=== PATIENT | female | born 1965 | race Caucasian/White ===

== ENCOUNTER → 2016-08-08 | Outpatient (CLI) | payer BC ==
[~2016-08-08] VITALS: Ht 152.4 cm; Wt 89.8 kg
[2016-08-08 08:57] VITALS: BP 136/79
--- NOTE | 2016-08-08 09:56 | RAD ---
Indication left thyroid nodule. Patient's outside thyroid examination from 07/27/2016 was reviewed. Preliminary ultrasound images were obtained and the known nodule in the left lobe of the thyroid was reproduced. Acting Teacher images were saved. Image guided biopsy was discussed with the patient. The risks of infection and bleeding were outlined. The possibility of a nondiagnostic study was also outlined. The patient understood the risks and limitations associated with the procedure and wished to proceed. The skin was prepped and draped in the routine fashion. Local anesthesia was obtained with 1% lidocaine. A medial to lateral approach was utilized. Under ultrasound guidance 4 FNA samples with 25-gauge needles were obtained. Subsequently a Rotex sample was obtained. Pathology was present during the biopsy procedure and all retrieved tissue was given to pathology. Patient tolerated the procedure well. Following the procedure the patient was watched in the department for 15 minutes and then discharged with appropriate instructions. IMPRESSION: Successful sampling 1 cm nodule in the left lobe of thyroid under ultrasound guidance
== END | disposition home or self-care (01) ==
LOC: US 07:46
PROVIDERS: ATTEND Family Medicine
DX: E04.1 Nontoxic single thyroid nodule (principal)
CPT/HCPCS: 60300; 76942

== ENCOUNTER → 2019-01-06 | Outpatient (CLI) | payer BC ==
[2016-08-08 08:57] VITALS: BP 136/79
[2019-01-06 16:13] LABS: BASO # 0.1 x10^3/uL (0.0-0.2); BASO % 1 % (0-3); EOS # 0.4 x10^3/uL (0.0-0.7); EOS % 4 % (0-3); HEMATOCRIT 43.1 % (36.0-47.0); HEMOGLOBIN 14.7 g/dL (12.0-15.5); LYMPH # 2.1 x10^3/uL (1.0-4.8); LYMPH % 25 % (24-48); MEAN CORPUSCULAR HEMOGLOBIN 29 pg (25-35); MEAN CORPUSCULAR HGB CONC 34 g/dL (31-37); MEAN CORPUSCULAR VOLUME 85 fL (79-100); MONO # 0.5 x10^3/uL (0.0-1.1); MONO % 6 % (0-9); NEUT # 5.5 x10^3/uL (1.8-7.7); NEUT % 64 % (31-73); PLATELET COUNT 251 x10^3/uL (140-400); RED BLOOD COUNT 5.06 x10^6/uL (3.50-5.40); WHITE BLOOD COUNT 8.6 x10^3/uL (4.0-11.0)
[2019-01-06 16:26] LABS: PROTHROMBIN TIME PATIENT 12.7 SEC (11.7-14.0)
[2019-01-06 16:40] LABS: ALBUMIN 3.8 g/dL (3.4-5.0); ALBUMIN/GLOBULIN RATIO 1.1 (1.0-1.7); CREATININE 0.9 mg/dL (0.6-1.0); POTASSIUM 3.5 mmol/L (3.5-5.1); TOTAL BILIRUBIN 0.3 mg/dL (0.2-1.0); TOTAL PROTEIN 7.4 g/dL (6.4-8.2)
== END | disposition home or self-care (01) ==
LOC: LAB 15:51
PROVIDERS: ATTEND Podiatrist
DX: M20.12 Hallux valgus (acquired), left foot (principal)
CPT/HCPCS: 36415; 80053; 85025; 85610; 85730

== ENCOUNTER → 2019-01-07 | Outpatient (CLI) | payer BC ==
[2016-08-08 08:57] VITALS: BP 136/79
[2019-01-08 00:07] LABS: HEMOGLOBIN A1C 5.3 % (4.8-5.6)
== END | disposition home or self-care (01) ==
LOC: LAB 16:00
PROVIDERS: ATTEND Podiatrist
DX: E11.9 Type 2 diabetes mellitus without complications (principal)
CPT/HCPCS: 36415; 83036

== ENCOUNTER 2019-01-16 10:01 | Day surgery (SDC) | payer BC ==
[~2019-01-16] VITALS: Ht 170.2 cm; Wt 88.0 kg
[~2019-01-16 10:01] MED LIST: CLINDAMYCIN 900MG PREMIX 50 ML IV PRN; DEXAMETHASONE SOD PHOS 4 MG/ML VIAL ONE; IV RINGERS,LACTATED 1000ML 1,000 ML IV SCH; LIDOCAINE 2% PF 5 ML VIAL. ONE; ONDANSETRON PF 4 MG/2 ML VIAL. IV PRN; ONDANSETRON PF 4 MG/2 ML VIAL. ONE; PROCHLORPERAZINE 10 MG/2 ML VIAL. IV PRN; PROPOFOL 20 ML IV ONE; fentaNYL PF VIAL 100 MCG/2 ML VIAL IV PRN
[2019-01-16] MEDS ORDERED: LEVO88TA4 PO (10:39)
[2019-01-16] MEDS ORDERED: LORA10TA68 PO (10:40)
--- NOTE | 2019-01-16 10:46 | HP ---
ADMIT DATE: 01/16/2019 CHIEF COMPLAINT: Left great toe bunion. HISTORY OF PRESENT ILLNESS: The patient is a pleasant middle-aged white female who works as a special medical claims specialist. She has a master's degree. Basically, she has chronic bunions. Slitter And Cutter Operator has decided to take her to surgery. There are going to do the left bunion today and then the right bunion in a month. We have been requested for preop medical clearance. PAST MEDICAL HISTORY: Basically benign, other than she has multiple allergies, please see the allergies list. ALLERGIES: Multiple, please see the allergy list, but she is basically allergic to all antibiotics, CODEINE AND TALWIN. FAMILY HISTORY: Noncontributory. SOCIAL HISTORY: She does not drink, smoke or take drugs. She works as a teacher, special ed, has a master's degree. MEDICATIONS: Reviewed, please refer to the MRAD. REVIEW OF SYSTEMS: GENERAL: No history of weight change, weakness or fevers. SKIN: No bruising, hair changes or rashes. EYES: No blurred, double or loss of vision. NOSE AND THROAT: No history of nosebleeds, hoarseness or sore throat. HEART: No history of palpitations, chest pain or shortness of breath on exertion. LUNGS: Denies cough, hemoptysis, wheezing or shortness of breath. GASTROINTESTINAL: Denies changes in appetite, nausea, vomiting, diarrhea or constipation. GENITOURINARY: No history of frequency, urgency, hesitancy or nocturia. NEUROLOGIC: Denies history of numbness, tingling, tremor or weakness. PSYCHIATRIC: No history of panic, anxiety or depression. ENDOCRINE: No history of heat or cold intolerance, polyuria or polydipsia. EXTREMITIES: She complains of left toe pain. PHYSICAL EXAMINATION: GENERAL: No history of weight change, weakness or fevers. SKIN: No bruising, hair changes or rashes. EYES: No blurred, double or loss of vision. NOSE AND THROAT: No history of nosebleeds, hoarseness or sore throat. HEART: No history of palpitations, chest pain or shortness of breath on exertion. LUNGS: Denies cough, hemoptysis, wheezing or shortness of breath. GASTROINTESTINAL: Denies changes in appetite, nausea, vomiting, diarrhea or constipation. GENITOURINARY: No history of frequency, urgency, hesitancy or nocturia. NEUROLOGIC: Denies history of numbness, tingling, tremor or weakness. PSYCHIATRIC: No history of panic, anxiety or depression. ENDOCRINE: No history of heat or cold intolerance, polyuria or polydipsia. EXTREMITIES: Both feet have a moderate sized bunion on the greater toe. LABORATORY: Preop lab is available at this time. ASSESSMENT AND PLAN: Bilateral bunions. She is cleared for surgery from my standpoint. I suspect she is at minimal risk for intraoperative complications. She is basically a healthy lady. Thank you very much for allowing us to participate in the care of this nice lady. If you have any questions, please call. ANGELA KELLER DO DR: TAYLA/estee JOB#: [id number] / [id number]
[2019-01-16] MEDS ORDERED: DEXAMETHASONE SOD PHOS 4 MG/ML VIAL ONE (10:56)
[2019-01-16] MEDS ORDERED: LIDOCAINE 1% 20 ML VIAL. ONE (10:56)
[2019-01-16] MEDS ORDERED: POVIDONE-IODINE 10% TOPICAL OINTMENT 28GM TUBE. TP ONE (10:56)
[2019-01-16] MEDS ORDERED: methylPREDNISolone ACETATE 40 MG/ML VIAL. ONE (10:56)
[2019-01-16] MEDS ORDERED: BUPIVACAINE MPF 0.5% 30 ML VIAL. ONE (10:57)
[2019-01-16] MEDS ORDERED: fentaNYL PF VIAL 100 MCG/2 ML VIAL ONE ×2 (12:31→13:02)
[2019-01-16] MEDS ORDERED: MIDAZOLAM HCL/PF 2 MG/2 ML VIAL. ONE (12:31)
[2019-01-16] MEDS ORDERED: IBUP-1060 PO (14:21)
[2019-01-16] MEDS ORDERED: ACET-704 PO (14:21)
--- NOTE | 2019-01-16 14:26 | DISCH ---
DISCHARGE INSTRUCTIONS Condition on Discharge Condition on Discharge: Stable Activity After Discharge Activity Instructions for Disc: Other, see below (Minimal heel weight bearing in CAM Walker with crutches or knee walker) Bathing Instructions: Shower-keep dressing dry Lifting Instructions after Dis: No heavy lifting, No pulling or pushing Driving Instructions after Dis: Do not drive Weight Bearing Status after Di: Other, see below (Minimal Heel weight bearing in CAM Walker with crutches or knee walker) Diet after Discharge Diet after Discharge: Regular Wound Incision Care Wound/Incision Care: Ice to area for comfort, Keep wound/cast CDI, Keep wound elevated, Do not change dressing Contacting the after DC Call your doctor for: Concerns you may have ([phone]) Follow-Up Follow up with: Dr. Short at the Clinic on Sunday01/21/19 at 3pm (please call if any issue) KELBY SHORT DPM Jan 16, 2019 14:26
[2019-01-16 14:40] VITALS: BP 154/85
--- NOTE | 2019-01-16 14:40 | PDOC4 ---
OPERATIVE NOTE: Post-op Note Date of Surgery: 01/16/19 Surgeon: Kelby Rutledge Hand Cigar Making Supervisor: Dr. Maier Pre-op Diagnosis: Hallux valgus, left foot Post-op Diagnosis: Same as above Procedure: Scarf Bunionectomy, left foot Materials used: In 2Bones 2.7 cortical screws 16mm x 2 Hemostasis: Left ankle torniquet set at 250 mmHg EBL: Minimal (5ml) Patient tolerated the procedure and anesthesia well and was transported back to PACU with vitals signs stable and good CFT to the digits. Patient to be minimal heel weight bearing with a CAM Walker left lower extremity with aide of crutches or knee walker. Discussed with patient pre-op about post op pain medication and it was found that she does not have a true allergy to Codeine (upset stomach). Prescribed tylenol #3 and ibuprofen 800mg. If the patient has any issues or reactions she should call the clinic or go to urgent care / ER. Patient to followup in clinic on Sunday01/21/19 at 3pm. KELBY SHORT DPM Jan 16, 2019 14:40
[2019-01-16] MEDS ORDERED: IBUPROFEN 200 MG TABLET. PO ONE ×2 (15:00→15:13)
[2019-01-16] MEDS ORDERED: IBUPROFEN 400 MG TABLET. PO ONE (15:00)
--- NOTE | 2019-01-16 15:04 | RAD ---
Portable three-view study left foot Clinical indications: Postoperative exam. FINDINGS: Distal osteotomy and screw fixation of the first metatarsal bone is evident. See operative report for full details. Soft tissue air is seen as a result of the surgery. No fracture is evident. No dislocation is seen. No lytic process is evident. Small plantar spur of the calcaneus is seen. IMPRESSION: Postoperative changes of the first metatarsal bone. Electronically signed by: Dwight Kim MD (01/16/2019 3:01 PM) [id number]
--- NOTE | 2019-01-21 20:37 | OP ---
DATE OF SURGERY: 01/16/2019 PREOPERATIVE DIAGNOSIS: Hallux valgus, left foot. POSTOPERATIVE DIAGNOSIS: Hallux valgus, left foot. PROCEDURE PERFORMED: Scarf bunionectomy, left foot. SURGEON: Dr. Short. DIALYSIS REGISTERED NURSE: Dr. العراقي. HEMOSTASIS: Left ankle tourniquet at 250 mmHg. ANESTHESIA: IV MAC sedation with local anesthetic in the Cormier fashion. INDICATIONS: The patient is a 53-year-old female with a chronically painful left bunion. She tried conservative treatment with insoles, wider shoes, accommodative padding without any improvement. Radiographs showed increased first metatarsal angle and deviated sesamoids and on clinical exam, the patient had positive pain on palpation to the medial and dorsal aspect of the first metatarsal head. We discussed with the patient the risks, benefits, and complications of the surgery including delayed healing, nonhealing, need for further surgery, infection, chronic regional pain syndrome, recurrence, numbness, tingling, burning, loss of sensation to the toe, blood clots to the leg, blood clots to the lung, overcorrection, under correction, stiff toe, floppy toe, flail toe, lack of toe purchase. All questions were answered. No guarantees were made. The patient signed the consent freely and it was placed in the chart. DESCRIPTION OF PROCEDURE: The patient was transferred to the operating room via cart and placed on operating room table in a supine position. After verification of the surgery, patient, a well-padded ankle tourniquet was placed over the left ankle. IV sedation was administered by Anesthesia and a Cormier block was administered to the left foot consisting of 1:1 mixture of 1% lidocaine plain and 0.5% Marcaine plain, 24 mL total. The left foot was then prepped and draped in the usual aseptic manner. Esmarch bandage was used to exsanguinate the left foot. The left ankle tourniquet was inflated to 250 mmHg. Attention was then directed to the left first ray where a 5 cm incision was made just medial to the extensor hallucis longus tendon. This was deepened down to the level of the joint capsule. Small vessels were cauterized and neurovascular bundle was reflected from the surgical site. Next, a linear incision was made to the first metatarsal and the base of the proximal phalanx and the joint capsule was reflected from the distal two-thirds of the first metatarsal and the base of the proximal phalanx. No significant osteochondral defects were noted to the first metatarsophalangeal joint. There was a large bony prominence to the medial eminence of the first metatarsal, which was resected with a sagittal saw. Next, a lateral release was performed and the sesamoids were put back underneath the first metatarsal head. Next, attention was redirected to the first metatarsal and the osteotomy was performed through the first metatarsal and the capital fragment was shifted laterally by about 3 mm. Temporary fixation was achieved with a bone clamp and two, 2.7 fully threaded cortical screws measuring 16 mm were used to fixate the osteotomy site satisfactorily. Improvement in the bunion deformity was noted. The surgical site was copiously irrigated with sterile saline solution and the capsule was then reapproximated with 3-0 Vicryl and the tendon was reapproximated using 3-0 Vicryl. The skin was then sutured together in a horizontal mattress fashion using 4-0 nylon. A postop injection was given using 6 mL of 0.5% Marcaine plain in a Cormier block fashion. Please note that prior to closure, the dorsal eminence of the first metatarsal was resected with a sagittal saw. The bandage was then placed with Betadine ointment, Adaptic gauze, 4 x 4 gauze, Conform bandage and an Sacha bandage. The tourniquet was deflated with good perfusion noted to all the digits of the left foot. The patient tolerated the anesthesia and the procedure well and was transported to the PACU in a stable condition with vascular status intact to the left foot. The patient's postop instructions were placed in the chart. The patient to be minimal weightbearing as tolerated in Cam walker boot and the patient is to follow up in clinic in 5 days or sooner if any issues. The patient given postop medication. KELBY SHORT DPM DR: MIKAEL/estee JOB#: [id number] / [id number]
== END 2019-01-16 15:15 | disposition home or self-care (01) ==
LOC: SURG 10:01
PROVIDERS: ATTEND Podiatrist
DX: M20.12 Hallux valgus (acquired), left foot (principal); E89.0 Postprocedural hypothyroidism; Z79.899 Other long term (current) drug therapy; Z90.710 Acquired absence of both cervix and uterus; Z90.49 Acquired absence of other specified parts of digestive tract; Z98.890 Other specified postprocedural states
CPT/HCPCS: 28296; 73630; 82962; C1713; J1100; J2001; J2250; J2405; J2704; J3010; J3490; J1030

== ENCOUNTER → 2019-03-10 | Outpatient (CLI) | payer BC ==
[~2019-03-10] MED LIST changes: +ACET-704 PO; +ASPI-171 PO; -CLINDAMYCIN 900MG PREMIX 50 ML IV PRN; -DEXAMETHASONE SOD PHOS 4 MG/ML VIAL ONE; +HYDR12.58 PO; +IBUP-1060 PO; +IBUP800T19 PO; -IV RINGERS,LACTATED 1000ML 1,000 ML IV SCH; +LEVO88TA4 PO; -LIDOCAINE 2% PF 5 ML VIAL. ONE; +LORA10TA68 PO; -ONDANSETRON PF 4 MG/2 ML VIAL. IV PRN; -ONDANSETRON PF 4 MG/2 ML VIAL. ONE; -PROCHLORPERAZINE 10 MG/2 ML VIAL. IV PRN; -PROPOFOL 20 ML IV ONE; +TRAM50TA PO; -fentaNYL PF VIAL 100 MCG/2 ML VIAL IV PRN
[2019-03-10 09:38] LABS: BASO # 0.1 x10^3/uL (0.0-0.2); BASO % 1 % (0-3); EOS # 0.2 x10^3/uL (0.0-0.7); EOS % 4 % (0-3); HEMATOCRIT 45.4 % (36.0-47.0); HEMOGLOBIN 15.6 g/dL (12.0-15.5); LYMPH # 1.5 x10^3/uL (1.0-4.8); LYMPH % 26 % (24-48); MEAN CORPUSCULAR HEMOGLOBIN 30 pg (25-35); MEAN CORPUSCULAR HGB CONC 34 g/dL (31-37); MEAN CORPUSCULAR VOLUME 86 fL (79-100); MONO # 0.4 x10^3/uL (0.0-1.1); MONO % 7 % (0-9); NEUT # 3.8 x10^3/uL (1.8-7.7); NEUT % 63 % (31-73); PLATELET COUNT 276 x10^3/uL (140-400); RED BLOOD COUNT 5.28 x10^6/uL (3.50-5.40); RED CELL DISTRIBUTION WIDTH 14.2 % (11.5-14.5); WHITE BLOOD COUNT 6.1 x10^3/uL (4.0-11.0)
[2019-03-10 09:47] LABS: PROTHROMBIN TIME PATIENT 13.4 SEC (11.7-14.0)
[2019-03-10 09:59] LABS: ALBUMIN 3.7 g/dL (3.4-5.0); ALBUMIN/GLOBULIN RATIO 0.9 (1.0-1.7); CALCIUM 8.7 mg/dL (8.5-10.1); GFR 58.2; POTASSIUM 3.7 mmol/L (3.5-5.1); TOTAL BILIRUBIN 0.6 mg/dL (0.2-1.0); TOTAL PROTEIN 7.7 g/dL (6.4-8.2)
== END | disposition home or self-care (01) ==
LOC: LAB 09:13
PROVIDERS: ATTEND Podiatrist
DX: Z01.818 Encounter for other preprocedural examination (principal); M21.612 Bunion of left foot; Z79.899 Other long term (current) drug therapy
CPT/HCPCS: 36415; 80053; 85025; 85610; 85730

== ENCOUNTER 2019-03-13 10:15 | Day surgery (SDC) | payer BC ==
[~2019-03-13] VITALS: Ht 170.2 cm; Wt 90.0 kg
[~2019-03-13 10:15] MED LIST changes: -ASPI-171 PO; +CLINDAMYCIN 900MG PREMIX 50 ML IV ONE; +HYDROmorphone 2 MG/ML VIAL IV PRN; -IBUP800T19 PO; +IV RINGERS,LACTATED 1000ML 1,000 ML IV SCH; +LIDOCAINE 1% PF 2 ML VIAL. ID PRN; +MORPHINE SULFATE 2 MG/ML VIAL. IV PRN; +ONDANSETRON PF 4 MG/2 ML VIAL. IV PRN; +PROCHLORPERAZINE 10 MG/2 ML VIAL. IV PRN; -TRAM50TA PO; +fentaNYL PF VIAL 100 MCG/2 ML VIAL IV PRN
[2019-03-13] MEDS ORDERED: BUPIVACAINE MPF 0.5% 30 ML VIAL. ONE (10:38)
[2019-03-13] MEDS ORDERED: POVIDONE-IODINE 10% TOPICAL OINTMENT 28GM TUBE. TP ONE ×2 (10:38→13:28)
[2019-03-13] MEDS ORDERED: DEXAMETHASONE SOD PHOS 4 MG/ML VIAL ONE (10:38)
[2019-03-13] MEDS ORDERED: LIDOCAINE 1% 20 ML VIAL. ONE (10:38)
[2019-03-13] MEDS ORDERED: MIDAZOLAM HCL/PF 2 MG/2 ML VIAL. ONE (11:46)
[2019-03-13] MEDS ORDERED: fentaNYL PF VIAL 100 MCG/2 ML VIAL ONE (11:47)
[2019-03-13] MEDS ORDERED: PROPOFOL 20 ML IV ONE (11:47)
[2019-03-13] MEDS ORDERED: LIDOCAINE 2% PF 5 ML VIAL. ONE (11:47)
[2019-03-13] MEDS ORDERED: PROPOFOL 50 ML IV ONE (12:13)
[2019-03-13] MEDS ORDERED: BACITRACIN TOPICAL OINT PACKET. TP ONE (12:57)
--- NOTE | 2019-03-13 13:26 | SSS ---
ADMIT DATE: 03/13/2019 CHIEF COMPLAINT: First toe bunion. HISTORY OF PRESENT ILLNESS: The patient is a pleasant, relatively healthy 54-year-old female, who had one bunion removed last month. Now, she is back to have the other one off. We have been requested for postop medical evaluation and treatment and clearance for surgery. PAST MEDICAL HISTORY: Previous bunion surgery, hypothyroidism, and hypertension. ALLERGIES: Multiple including MANY ANTIBIOTICS and LORTAB. Please see the chart. FAMILY HISTORY: Bunions. SOCIAL HISTORY: She is . 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 She does not drink, smoke or take drugs. MEDICATIONS: Reviewed. She is on Synthroid and hydrochlorothiazide. REVIEW OF SYSTEMS: GENERAL: No history of weight change, weakness or fevers. SKIN: No bruising, hair changes or rashes. EYES: No blurred, double or loss of vision. NOSE AND THROAT: No history of nosebleeds, hoarseness or sore throat. HEART: No history of palpitations, chest pain or shortness of breath on exertion. LUNGS: Denies cough, hemoptysis, wheezing or shortness of breath. GASTROINTESTINAL: Denies changes in appetite, nausea, vomiting, diarrhea or constipation. GENITOURINARY: No history of frequency, urgency, hesitancy or nocturia. NEUROLOGIC: Denies history of numbness, tingling, tremor or weakness. PSYCHIATRIC: No history of panic, anxiety or depression. ENDOCRINE: No history of heat or cold intolerance, polyuria or polydipsia. EXTREMITIES: She complains of bunion pain on the left first toe. PHYSICAL EXAMINATION: VITALS: Within normal limits and are stable. GENERAL: No apparent distress. Alert and oriented. HEENT: Normal cephalic atraumatic, external auditory canals are patent. EYES: Extraocular muscles are intact, pupils are equally round and reactive to light and accommodation. MUSKULOSKELETAL: Well developed, well nourished, good range of motion. ENDOCRINE: No thyromegaly was palpated. LYMPHATICS: No cervical chain or axillary nodes were noted. HEMATOPOIETIC: No bruising. NECK: Supple, no JVD, no thyromegaly was noted. LUNGS: Clear to auscultation in all lung price without rhonchi or wheezing. HEART: RRR, S1, S2 present. Peripheral pulses intact, no obvious murmurs were noted. ABDOMEN: Soft, nontender. Positive bowel sounds no organomegaly, normal bowel sounds. EXTREMITIES: She has a bunion on the left first toe. NEUROLOGIC: Normal speech, normal tone. A & O x3, moves all extremities, no obvious focal deficits. PSYCHIATRIC: Normal affect, normal mood. Stable. SKIN: No ulcerations or rashes, good skin turgor, no jaundice. VASCULAR: Good capillary refill, neurovascular bundle appears to be intact. ASSESSMENT AND PLAN: Bunion with intractable pain in a middle-aged female with above noted comorbidities. PLAN: The patient is clinically stable to go to surgery. Postoperatively, she will need wound care. Continue her home meds and have her see her doctor in a week. DISPOSITION: Home. ACTIVITY: As tolerated. DIET: Low sodium. DISCHARGE MEDICATIONS: Please see MRAD. TOTAL TIME: 32 minutes. JUNIORL Laura KELLER DO DR: TAYLA/estee JOB#: [id number] / [id number]
--- NOTE | 2019-03-13 13:36 | DISCH ---
DISCHARGE INSTRUCTIONS Condition on Discharge Condition on Discharge: Stable Activity After Discharge Activity Instructions for Disc: Other, see below Bathing Instructions: Shower-keep dressing dry Lifting Instructions after Dis: No heavy lifting, No pulling or pushing Driving Instructions after Dis: Do not drive Weight Bearing Status after Di: Other, see below (Minimal weightbearing, bilateral feet in CAM Walker booots.) Diet after Discharge Diet after Discharge: Regular Wound Incision Care Wound/Incision Care: Keep wound/cast CDI, Keep wound elevated, Do not change dressing Contacting the after DC Call your doctor for: Concerns you may have Follow-Up Follow up with: Dr. Short on 03/18/19 at 3:30pm KELBY SHORT DPM Mar 13, 2019 13:36
[2019-03-13] MEDS ORDERED: traMADol 50 MG TABLET PO ONE (13:45)
--- NOTE | 2019-03-13 13:53 | RAD ---
Three-view right foot study Clinical indications: Postoperative study FINDINGS: Distal first metatarsal osteotomy and screw fixation is seen. No acute fracture is seen elsewhere. No lytic process evident. No dislocation is seen. IMPRESSION: Bunionectomy.. Electronically signed by: Dwight Kim MD (03/13/2019 1:50 PM) [facility]
--- NOTE | 2019-03-13 13:56 | PDOC4 ---
OPERATIVE NOTE: Post operative Note: Date of Surgery: 03/13/19 Surgeon: Kelby Rutledge Pre-op Diagnosis: Hallux valgus, right foot Post-op Diagnosis: Same as above Procedure: Patel Bunionectomy, right foot Materials used: In 2Bones 3.0 cortical screws 24mm x 1 Hemostasis: Right ankle torniquet set at 250 mmHg for 52 minutes. EBL: Minimal (5ml) Patient tolerated the procedure and anesthesia well and was transported back to PACU with vitals signs stable and good CFT to the digits. Patient to be minimal heel weight bearing with a CAM Walker right lower extremity with aide of crutches or knee walker. Patient to followup in clinic on Sunday03/18/19 at 3:30pm. KELBY SHORT DPM Mar 13, 2019 13:56
[2019-03-13] MEDS ORDERED: TRAM50TA PO (14:11)
[2019-03-13] MEDS ORDERED: IBUP800T19 PO (14:12)
[2019-03-13] MEDS ORDERED: ASPI-171 PO (14:13)
[2019-03-13 14:30] VITALS: BP 127/76
--- NOTE | 2019-03-13 16:41 | OP ---
DATE OF SURGERY: 03/13/2019 PREOPERATIVE DIAGNOSIS: Hallux valgus, right foot. POSTOPERATIVE DIAGNOSIS: Hallux valgus, right foot. PROCEDURE PERFORMED: Patel bunionectomy, right foot. SURGEON: Kelby Short DPM. HEMOSTASIS: Right ankle tourniquet at 250 mmHg for 52 minutes. ANESTHESIA: IV MAC sedation with local anesthetic in Cormier fashion. INDICATIONS: The patient is a 54-year-old female with chronically painful right bunion. The patient recently had a left bunionectomy surgery done. The patient would like to go ahead and have the right foot bunionectomy. The patient has tried conservative treatment with insoles, wider shoes, and accommodative padding without any improvement. Radiograph showed increased first metatarsal angle and deviated sesamoids and on clinical exam, the patient had positive pain on palpation to the medial and dorsal aspect of the first metatarsal head. We discussed the patient's risks, benefits, and complications of the surgery including delayed healing, nonhealing, need for further surgery, infection, chronic regional pain syndrome, recurrence, numbness, tingling, burning, loss of sensation to the toe, blood clots to the leg, blood clots to the lungs, overcorrection, under correction, stiff toe, floppy toe, flail toe, lack of toe purchase. All questions were answered. No guarantees were made. The patient signed the consent freely and it was placed in the chart. DESCRIPTION OF PROCEDURE: The patient was transported to the operating room via cart and placed on the operating room table in a supine position. After verification of surgery, the patient, and the procedure, a well-padded ankle tourniquet was placed over the right ankle. IV sedation was administered by Anesthesia and a Cormier block was administered to the right foot consisting of 1:1 mixture of 1% lidocaine plain and 0.5% Marcaine plain, 20 mL total. The right foot was then prepped and draped in the usual aseptic manner. Esmarch bandage was used to exsanguinate the right foot. The right ankle tourniquet was inflated to 250 mmHg. Attention was then directed to the right first ray where a 4 cm incision was made just medial to the extensor hallucis longus tendon. This was deepened down to the level of the joint capsule. Small vessels were cauterized and neurovascular bundle was reflected from the surgical site. Next, a linear incision was made to the first metatarsal and the base of the proximal phalanx and the joint capsule was reflected from the distal one-third of the first metatarsal and the base of the proximal phalanx. No significant osteochondral defects were noted to the first metatarsophalangeal joint. There was a large bony prominence to the medial eminence of the first metatarsal, which was resected with a sagittal saw. Next, a lateral release was performed and the sesamoids were put back underneath the first metatarsal head. Next, attention was redirected to the first metatarsal and the osteotomy was performed through the first metatarsal head and an Patel osteotomy, the capital fragment was then shifted laterally by about 3 mm. Temporary fixation was achieved using a 0.045 K-wire and permanent fixation was achieved using 130 fully threaded cortical screw measuring 24 mm, the osteotomy site was fixated satisfactorily. The temporary fixation was removed. Improvement in the bunion deformity was noted. The surgical site was copiously irrigated with sterile saline solution and the capsule was reapproximated. Next, using the sagittal saw, the dorsal eminence of the first metatarsal as well as lateral eminence was resected, flushed with the osteotomy site. Next, the surgical site was irrigated with sterile saline solution and the capsule was reapproximated using 3-0 Vicryl and the tendon was reapproximated using 3-0 Vicryl. The skin was then sutured together in a horizontal mattress fashion using 4-0 nylon. The bandage was then placed with bacitracin ointment, Adaptic gauze, 4 x 4 gauze, Conform bandage and Sacha wrap. The tourniquet was deflated with good perfusion noted to the digits of the right foot. The patient tolerated the anesthesia and the procedure well and was transferred to the PACU in stable condition and vascular status intact to the right foot. The patient's postop instructions were placed in the chart. The patient to be minimal weightbearing as tolerated in a Cam walker boot and is to follow up in clinic in 5 days or sooner if any issues. The patient was given postoperative pain medication prescriptions. KELBY SHORT DPM DR: MIKAEL/estee JOB#: [id number] / [id number]
== END 2019-03-13 14:40 | disposition home or self-care (01) ==
LOC: SURG 10:15
PROVIDERS: ATTEND Podiatrist
DX: M20.11 Hallux valgus (acquired), right foot (principal); E03.9 Hypothyroidism, unspecified; I10 Essential (primary) hypertension; E66.9 Obesity, unspecified; Z68.31 Body mass index [BMI] 31.0-31.9, adult; Z90.710 Acquired absence of both cervix and uterus; Z98.890 Other specified postprocedural states; Z90.49 Acquired absence of other specified parts of digestive tract; Z85.850 Personal history of malignant neoplasm of thyroid; Z88.1 Allergy status to other antibiotic agents; Z88.8 Allergy status to other drugs, medicaments and biological substances
CPT/HCPCS: 28296; 73630; C1713; J2001; J2250; J2704; J3010; J3490; J1100

== ENCOUNTER → 2019-04-28 | Outpatient (CLI) | payer BC ==
[~2019-04-28] MED LIST changes: +ASPI-171 PO; +CALC600T4 PO; -CLINDAMYCIN 900MG PREMIX 50 ML IV ONE; +HYDR25TA10 PO; -HYDROmorphone 2 MG/ML VIAL IV PRN; +IBUP800T19 PO; -IV RINGERS,LACTATED 1000ML 1,000 ML IV SCH; -LIDOCAINE 1% PF 2 ML VIAL. ID PRN; -MORPHINE SULFATE 2 MG/ML VIAL. IV PRN; -ONDANSETRON PF 4 MG/2 ML VIAL. IV PRN; -PROCHLORPERAZINE 10 MG/2 ML VIAL. IV PRN; +TRAM50TA PO; -fentaNYL PF VIAL 100 MCG/2 ML VIAL IV PRN
[2019-04-28 12:13] LABS: BASO # 0.1 x10^3/uL (0.0-0.2); BASO % 1 % (0-3); EOS # 0.2 x10^3/uL (0.0-0.7); EOS % 3 % (0-3); HEMATOCRIT 45.2 % (36.0-47.0); HEMOGLOBIN 15.6 g/dL (12.0-15.5); LYMPH # 1.5 x10^3/uL (1.0-4.8); LYMPH % 21 % (24-48); MEAN CORPUSCULAR HEMOGLOBIN 30 pg (25-35); MEAN CORPUSCULAR HGB CONC 34 g/dL (31-37); MEAN CORPUSCULAR VOLUME 86 fL (79-100); MONO # 0.4 x10^3/uL (0.0-1.1); MONO % 5 % (0-9); NEUT # 5.1 x10^3/uL (1.8-7.7); NEUT % 71 % (31-73); PLATELET COUNT 250 x10^3/uL (140-400); RED BLOOD COUNT 5.27 x10^6/uL (3.50-5.40); RED CELL DISTRIBUTION WIDTH 14.1 % (11.5-14.5); WHITE BLOOD COUNT 7.2 x10^3/uL (4.0-11.0)
[2019-04-28 12:26] LABS: PROTHROMBIN TIME PATIENT 14.2 SEC (11.7-14.0)
[2019-04-28 12:37] LABS: ALBUMIN 3.6 g/dL (3.4-5.0); CALCIUM 8.3 mg/dL (8.5-10.1); CREATININE 0.9 mg/dL (0.6-1.0); GFR 65.8; POTASSIUM 3.3 mmol/L (3.5-5.1); TOTAL BILIRUBIN 0.5 mg/dL (0.2-1.0); TOTAL PROTEIN 7.3 g/dL (6.4-8.2)
== END | disposition home or self-care (01) ==
LOC: LAB 11:39
PROVIDERS: ATTEND Podiatrist
DX: Z01.818 Encounter for other preprocedural examination (principal); T84.84XA Pain due to internal orthopedic prosthetic devices, implants and grafts, initial encounter; Y92.89 Other specified places as the place of occurrence of the external cause; Y83.8 Other surgical procedures as the cause of abnormal reaction of the patient, or of later complication, without mention of misadventure at the time of the procedure
CPT/HCPCS: 36415; 80053; 85025; 85610; 85730

== ENCOUNTER → 2019-05-01 | Day surgery (SDC) | payer BC ==
[~2019-05-01] VITALS: Ht 170.2 cm; Wt 90.0 kg
[~2019-05-01] MED LIST changes: +BACITRACIN TOPICAL OINT PACKET. TP ONE; +BUPIVACAINE MPF 0.5% 30 ML VIAL. ONE; +CLINDAMYCIN 900MG PREMIX 50 ML IV PRN; +DEXAMETHASONE SOD PHOS 4 MG/ML VIAL ONE; +FAMOTIDINE 20 MG/2 ML VIAL ONE; +IBUPROFEN 400 MG TABLET. PO ONE; +IV RINGERS,LACTATED 1000ML 1,000 ML IV ONE; +LIDOCAINE 1% 20 ML VIAL. ONE; +LIDOCAINE 2% PF 5 ML VIAL. ONE; +MIDAZOLAM HCL/PF 2 MG/2 ML VIAL. ONE; +ONDANSETRON PF 4 MG/2 ML VIAL. ONE; +PROPOFOL 20 ML IV ONE; +SEVOFLURANE 31 TO 60 MINUTES. IH ONE; +fentaNYL PF VIAL 100 MCG/2 ML VIAL ONE
--- NOTE | 2019-05-01 12:06 | PDOC1 ---
History and Physical Date of Admission Date of Admission DATE: 05/01/19 TIME: 12:04 Identification/Chief Complaint Chief Complaint right foot pain, here for hardware removal, denies other symptoms, problems Past Medical History Heme/Onc: No pertinent hx Hepatobiliary: No pertinent hx Psych: No pertinent hx Renal/: No pertinent hx Endocrine: Hypothyroidism Family History Family History: High Cholestrol Social History Smoke: No ALCOHOL: none Drugs: None Current Medications Current Medications Current Medications Clindamycin Phosphate 50 ml @ 100 mls/hr 1X PREOP PRN IV PRIOR TO PROCEDURE; Start 05/01/19 at 06:00; Stop 05/01/19 at 18:00 Active Scripts Active Reported Calcium (Calcium Carbonate) 600 Mg Tablet 600 Mg PO DAILY Hydrochlorothiazide Tablet (Hydrochlorothiazide) 12.5 Mg Tablet 25 Mg PO DAILY Claritin (Loratadine) 10 Mg Tablet 1 Tab PO DAILY 30 Days Levothyroxine Sodium 88 Mcg Tablet 1 Tab PO DAILY Allergies Allergies: Coded Allergies: Penicillins (Verified Allergy, Severe, HIVES/THROAT SWELLED UP, 05/01/19) gentamicin (Verified Allergy, Severe, ANAPHYLACTIC ?,HAD PENTAZOCINE AT SAME TIME, 05/01/19) pentazocine (Verified Allergy, Severe, ANAPHYLACTIC? (HAD GENTAMYCIN AND NOT KNOWN WHICH ONE), 05/01/19) tetracycline (Verified Allergy, Severe, HIVES/THROAT SWELLED UP, 05/01/19) Sulfa (Sulfonamide Antibiotics) (Verified Allergy, Intermediate, RASH ALL OVER AND RESPIRATORY PROBLEMS, 05/01/19) cefaclor (Verified Allergy, Intermediate, HIVES/VOMITING, 05/01/19) erythromycin base (Verified Allergy, Intermediate, UNKNOWN (YOUNG), 05/01/19) codeine (Verified Adverse Reaction, Intermediate, PROFUSED VOMITING, 05/01/19) egg (Verified Adverse Reaction, Intermediate, HIVES/STOMACH UPSET (i.e DIARRHEA IF EATS MORE OFTEN), 05/01/19) ROS General: No: Chills, Night Sweats, Fatigue, Malaise, Appetite, Other PSYCHOLOGICAL ROS: No: Anxiety, Behavioral Disorder, Concentration difficultie, Decreased libido, Depression, Disorientation, Hallucinations, Hostility, Irritablity, Memory difficulties, Mood Swings, Obsessive thoughts, Physical abuse, Sexual abuse, Sleep disturbances, Suicidal ideation, Other Eyes: No Blurry vision, No Decreased vision, No Double vision, No Dry eyes, No Excessive tearing, No Eye Pain, No Itchy Eyes, No Loss of vision, No Photophobia, No Scotomata, No Uses contacts, No Uses glasses, No Other HEENT: No: Heacaches, Visual Changes, Hearing change, Nasal congestion, Nasal discharge, Oral lesions, Sinus pain, Sore Throat, Epistaxis, Sneezing, Snoring, Tinnitus, Vertigo, Vocal changes, Other Hematological and Lymphatic: No: Bleeding Problems, Blood Clots, Blood Transfusions, Brusing, Night Sweats, Pallor, Swollen Lymph Nodes, Other Breast: No New/Changing Breast Lumps, No Nipple changes, No Nipple discharge, No Other Respiratory: No: Cough, Hemoptysis, Orthopnea, Pleuritic Pain, Shortness of breath, SOB with excertion, Sputum Changes, Stridor, Tachypnea, Wheezing, Other Cardiovascular: No Chest Pain, No Palpitations, No Orthopnea, No Paroxysmal Noc. Dyspnea, No Edema, No Lt Headedness, No Other Gastrointestinal: No Nausea, No Vomiting, No Abdominal Pain, No Diarrhea, No Constipation, No Melena, No Hematochezia, No Other Musculoskeletal: Yes Gait Disturbance, Yes Joint Pain Neurological: Yes Gait Disturbance Physical Exam General: Alert, Oriented X3, Cooperative, No acute distress HEENT: PERRLA Lungs: Clear to auscultation, Normal air movement Heart: S1S2, RRR, no thrills Breasts: Not examined Abdomen: Normal bowel sounds, Soft, No tenderness Rectal Exam: not examined PELVIC: Examination not indicated Extremities: No cyanosis, No edema Neuro: Normal speech, Cranial nerves 3-12 NL Psych/Mental Status: Mental status NL, Mood NL Vitals Vitals Vital Signs Date Time Temp Pulse Resp B/P (MAP) Pulse Ox O2 Delivery O2 Flow Rate FiO2 05/01/19 11:54 97.0 84 20 138/57 97 Room Air 97.0 Images Images Three-view right foot study Clinical indications: Postoperative study FINDINGS: Distal first metatarsal osteotomy and screw fixation is seen. No acute fracture is seen elsewhere. No lytic process evident. No dislocation is seen. IMPRESSION: Bunionectomy.. Electronically signed by: Daniel Kim MD (03/13/2019 1:50 PM) [facility] DICTATED and SIGNED BY: DANIEL KIM MD DATE: 03/13/19 1350 VTE Prophylaxis Ordered VTE Prophylaxis Devices: No VTE Pharmacological Prophylaxi: No Assessment/Plan Assessment/Plan impression planned hardware removal right foot due to pain Bilateral bunions. obesity hx hypertension hypothyroid state on oral replacement plan cleared for surgery from my standpoint. appears minimal risk for intraoperative complications. ANA SALGUERO MD May 01, 2019 12:06
--- NOTE | 2019-05-01 14:39 | PDOC4 ---
OPERATIVE NOTE: Post operative Note: Date of Surgery: 05/01/2019 Surgeon: Kelby Rutledge Pre-op Diagnosis: Hardware irritation, right foot Post-op Diagnosis: Same as above Procedure: Hardware (screw) removal, right foot Material removed: In 2Bones 3.0 cortical screws 24mm x 1 Hemostasis: Right ankle torniquet set at 250 mmHg for 19 minutes. EBL: Minimal (5ml) Patient tolerated the procedure and anesthesia well and was transported back to PACU with vitals signs stable and good CFT to the digits. Patient to be minimal heel weight bearing with a CAM Walker right lower extremity with aide of crutches or knee walker. Patient to followup in clinic on Sunday05/06/19 at 4:00pm or sooner if any issues. KELBY SHORT DPM May 01, 2019 14:39
--- NOTE | 2019-05-01 14:48 | DISCH ---
DISCHARGE INSTRUCTIONS Condition on Discharge Condition on Discharge: Stable Activity After Discharge Activity Instructions for Disc: Other, see below (Minimal heel weight bearing, right lower extremity in CAM Walker Boot) Bathing Instructions: Shower-keep dressing dry Lifting Instructions after Dis: No heavy lifting, No pulling or pushing Driving Instructions after Dis: Do not drive Weight Bearing Status after Di: Other, see below (Minimal heel weight bearing in CAM Walker, right lower extremity) Diet after Discharge Diet after Discharge: Regular Wound Incision Care Wound/Incision Care: Keep wound/cast CDI, Keep wound elevated, Do not change dressing Contacting the DR. gisel SOTO Call your doctor for: Concerns you may have (Call Dr. Short for any issues ([phone])) KELBY SHORT DPM May 01, 2019 14:48
[2019-05-01 15:20] VITALS: BP 129/60
--- NOTE | 2019-05-01 15:27 | RAD ---
Examination: FOOT RIGHT 3V History: Post hardware removal Comparison/Correlation: 03/13/2019 right foot Knee 3 View X ray exam Findings: Total 3 images of the right foot were obtained by portable technique. Overlying cast material may limit evaluation for fine detail. Joint spaces are evident. No acute displaced fracture identified. Small calcaneal spur is noted. Interval removal of a screw at the distal right first metatarsal neck and head is noted. Residual lucencies and cortical defects at the first metatarsal neck are present at the site are present.. Cortical defects are similar to the prior exam. Impression: Interval removal of a screw at the distal first metatarsal bone. No suspicious findings. Electronically signed by: Neeraj Kovacs MD (05/01/2019 3:24 PM) [facility]
--- NOTE | 2019-05-01 16:08 | OP ---
DATE OF SURGERY: 05/01/2019 PREOPERATIVE DIAGNOSIS: Hardware irritation, right foot. POSTOPERATIVE DIAGNOSIS: Hardware irritation, right foot. PROCEDURE PERFORMED: Hardware removal, screw removal, right foot. SURGEON: Kelby Short DPM HEMOSTASIS: Right ankle tourniquet set at 250 mmHg for 19 minutes. ANESTHESIA: MAC sedation with local anesthetic in Cormier fashion. INDICATIONS FOR PROCEDURE: The patient is a 54-year-old female with a bunionectomy that was performed on 03/13/2019. The patient recently reported that she had difficulty walking on the right foot secondary to pain at the bottom of the right foot. X-ray showed the screw was protruding out of the first metatarsal right foot at the plantar aspect with pain secondary to it. The screw was prominent and palpable under the skin and soft tissue. The patient wanted the screw removed, so she could ambulate without pain. We discussed with the patient the risks, benefits, and complications of the surgery. We discussed with her about keeping the screw a little longer for healing, but there were 7 weeks post-bunionectomy and the patient wanted to get the screw removed, so she could walk without pain. We discussed about complications of surgery including delayed healing, nonhealing, need for further surgery, possible dislocation of the osteotomy side, chronic regional pain syndrome, reoccurrence of the deformity, numbness, tingling, burning, loss of sensation to the toe, loss of correction, under correction or over correction, blood clots to the leg, blood clots to the lung, stiff toe, floppy toe, flail toe, lack of purchase of the toe. All questions were answered. No guarantees were made. The patient understands that she might require further surgery. The patient signed the consent form freely and the consent form was placed in the chart. The patient was aware of all the risks and complications. DESCRIPTION OF PROCEDURE: The patient was transferred to the operating room via cart and placed on the operating room table in a supine position. After verification of the surgery, the patient and the procedure, a well-padded ankle tourniquet was placed on the right ankle. Anesthesia was administered by Anesthesia service and a Cormier block was administered to the right foot consisting of 16 mL of 1:1 mixture of 1% lidocaine plain and 0.5% Marcaine plain. The right foot was then prepped and draped in the usual aseptic manner. An Esmarch bandage was used to exsanguinate the right foot. The right ankle tourniquet was inflated to 250 mmHg. Attention was then directed to the right first ray where a 1.5 cm incision was made at the previous incision site of the bunionectomy. Before the incision was made, a mini C-arm was used to correctly identify the location of the screw and the incision was made right above the location about 1.5 cm long. Next, the incision was deepened down to the first metatarsal and the soft tissue was resected with care being taken to protect the neurovascular bundle. The screw was identified and using a Rugby, the soft tissue was freed around the screw. The screw was deepened to the bone and the screw was cleared of any bony fragments. Next, the screw was removed without any problems. The osteotomy site was examined and the joint range of motion was examined. There was no dislocation of the osteotomy site and the osteotomy site looked healed with good healing noted and no dislocation or no movement across the osteotomy site even under stress. Next, the plantar aspect was examined for any other issues and no abscesses or no other issues were found underneath the plantar aspect of the first metatarsal. The surgical site was then irrigated and the tissue was sutured together using 3-0 Vicryl. The skin was sutured together in a horizontal mattress fashion using 4-0 nylon. The incision site was dressed using bacitracin, Adaptic gauze, 4 x 4 gauze, Conform bandage and Sacha wrap. The tourniquet was deflated with good perfusion noted to all the digits of the foot. The patient tolerated the anesthesia and the procedure well and was transported to the PACU in stable condition with vascular status intact to the right foot. The patient's postop instructions were placed in the chart. The patient is to be minimal heel weightbearing in a Cam walker boot and the patient is to follow up in clinic in 5-7 days or sooner if any issues. The patient is to call clinic if any issues. KELBY SHORT DPM DR: MIKAEL/estee JOB#: [id number] / [id number]
== END | disposition home or self-care (01) ==
LOC: SURG 11:28
PROVIDERS: ATTEND Podiatrist
DX: T84.84XA Pain due to internal orthopedic prosthetic devices, implants and grafts, initial encounter (principal); E03.9 Hypothyroidism, unspecified; Y83.8 Other surgical procedures as the cause of abnormal reaction of the patient, or of later complication, without mention of misadventure at the time of the procedure; Y92.89 Other specified places as the place of occurrence of the external cause; Z79.899 Other long term (current) drug therapy; Z98.890 Other specified postprocedural states; Z88.0 Allergy status to penicillin; Z88.1 Allergy status to other antibiotic agents; Z88.8 Allergy status to other drugs, medicaments and biological substances; Z88.6 Allergy status to analgesic agent; Z91.012 Allergy to eggs
CPT/HCPCS: 20680; 73630; J1100; J2001; J2250; J2405; J2704; J3010; J3490